=== PATIENT | female | born 1975 | race Caucasian/White ===

== ENCOUNTER 2016-11-06 20:19 | Emergency (ER) | payer SELFPAY ==
[2016-11-06] MEDS ORDERED: fentaNYL CITRATE/PF 100 MCG/ 2ML AMP ONE (20:31)
[2016-11-06] MEDS ORDERED: ONDANSETRON HCL/PF 4 MG/ 2ML VIAL ONE (20:31)
[2016-11-06] MEDS ORDERED: fentaNYL CITRATE/PF 100 MCG/ 2ML AMP IM ONE ×2 (20:45→22:37)
[2016-11-06] MEDS ORDERED: ONDANSETRON HCL/PF 4 MG/ 2ML VIAL IM ONE (20:45)
--- NOTE | 2016-11-06 20:49 | ED Physician Documentation ---
Fall - HISTORIAN Historian: patient - HPI Stated Complaint: Fall with back pain Chief Complaint: Fall Additional Information: fell approx 10 feet onto cement w/low back pelvis and low abd pain-no neck head or upper back pain no loc. walked bent over into ED Onset: just prior to arrival Where: home (helping put up window shutters) Context: lost balance r: moderate, severe Associated Symptoms:: no loss of consciousness Location of Pain/Injury: abdomen (low), lower back, other (perlvis rad into lt butocks). denies: head, neck, chest Injury to Left Extremity: none - ROS CONST: no problems NEURO: other (appears in sig pain) MS/SKIN/LYMPH: denies: weakness, numbness, neck pain EYES/ENT: denies: problems with vision CVS/RESP: none. denies: shortness of breath GI/: nausea. denies: vomiting - PAST HX Past History: other (seizures chronic pancreatitis w/port) Allergies/Adverse Reactions: Allergies Allergy/AdvReac Type Severity Reaction Status Date / Time ketorolac tromethamine Allergy Intermediate Verified 11/06/16 20:25 [From Toradol] NSAIDS (Non-Steroidal Allergy Intermediate Verified 11/06/16 20:25 Anti-Inflamma prochlorperazine Allergy Intermediate Verified 11/06/16 20:25 [From Compazine] prochlorperazine edisylate Allergy Intermediate Verified 11/06/16 20:25 [From Compazine] prochlorperazine maleate Allergy Intermediate Verified 11/06/16 20:25 [From Compazine] tramadol Allergy Intermediate Verified 11/06/16 20:25 Home Medications: Ambulatory Orders Medication Instructions Recorded Fluoxetine HCl [Prozac] 20 mg PO DAILY PRN MDD TID 11/06/16 Levetiracetam [Keppra] 1,500 mg PO BID 11/06/16 Lipase/Protease/Amylase [Pancreaze 1 each PO TID 11/06/16 10,500 Unit Cap ] Propranolol HCl [Inderal] 10 mg PO BID 11/06/16 - SOCIAL HX Smoking History: less than 1 pack/day Alcohol Use: none Drug Use: none - FAMILY HX Family History: no significant history - REVIEWED ASSESSMENTS Nursing Assessment Reviewed: Yes Vitals Reviewed: Yes ED Results Lab/Radiology - Orders Orders: ED Orders Category Date Time Status Ondansetron HCl/Pf [Zofran 4 mg/2 ml] Med 11/06/16 20:31 Discontinued 4 mg .ROUTE .STK-MED ONE fentaNYL CITRATE/PF [Duragesic] Med 11/06/16 20:31 Discontinued 100 mcg .ROUTE .STK-MED ONE Fall Physical Exam - Physical Exam General Appearance: moderate distress Head: non-tender, no swelling, no obvious injury Neck: non-tender, painless ROM Eye: YANCY, EOMI Resp/CVS: chest non-tender, no ecchymosis, breath sounds nml, no resp. distress , heart sounds nml. No: rib tenderness, subcutaneous emphysema, decreased breath sounds Abdomen: tenderness (across low abdomen) Neuro: oriented x3, sensation nml, motor nml, mood/affect nml, ataxic gait Skin: color nml, no rash. No: cyanosis, diaphoresis, pallor Back: CVA tenderness (R), muscle spasm, vertebral tenderness Extremities: No: pelvis stable (pain w/any palpation) - [place] Coma Score Eyes Open: Spontaneous Speech: Oriented Motor: Obeys Commands Discharge Clincal Impression: fall w/pelvic/lumbar pain, poss pelvic fx w/hemorrhage Referrals: Primary Doctor,No [Primary Care Provider] - 2 Days Comments: unable get iv for meds-elect tnsf DR [facility] [place] ED Condition: Fair Disposition: 02 XFER SHT-TRM HOSP Decision to Admit: [id number] Decision Time: 21:54
[2016-11-06] MEDS ORDERED: HYDROmorphone HCL/PF 2 MG/ML DISP.SYRIN ONE (21:49)
[2016-11-06] MEDS ORDERED: HYDROmorphone HCL/PF 2 MG/ML DISP.SYRIN IM ONE (21:50)
[2016-11-06 23:45] VITALS: BP 126/94
== END 2016-11-06 22:30 | disposition short-term general hospital (02) ==
LOC: ED 20:19
DX: M54.5 Low back pain (principal); R10.2 Pelvic and perineal pain; W19.XXXA Unspecified fall, initial encounter; Y93.9 Activity, unspecified; Y99.9 Unspecified external cause status
CPT/HCPCS: J1170; J2405; J3010; 96374; 96375; 99284; L0120; S1016